=== PATIENT | female | born 1995 | race Caucasian/White ===

== ENCOUNTER 2021-09-27 19:30 | Emergency (ER) | payer MEDICAID ==
[~2021-09-27] VITALS: Ht 152.4 cm; Wt 63.0 kg
[2021-09-27] MEDS ORDERED: IBUPROFEN 800MG TABLET PO ONE (21:45)
[2021-09-27 22:30] VITALS: BP 106/63
== END 2021-09-27 22:42 | disposition home or self-care (01) ==
LOC: ER 20:03 → EDBD 20:03 → ER 22:42
DX: S93.492A Sprain of other ligament of left ankle, initial encounter (principal); X50.1XXA Overexertion from prolonged static or awkward postures, initial encounter; Y93.02 Activity, running; Y92.89 Other specified places as the place of occurrence of the external cause
CPT/HCPCS: 73610; 99283